=== PATIENT | male | born 1995 ===

== ENCOUNTER → 2016-07-17 | Outpatient (CLI) | payer BC ==
[2016-07-17 12:06] LABS: BLOOD UREA NITROGEN 18 mg/dL (7-22); BUN/CREATININE RATIO 16.36 (6-20); CALCIUM 9.8 mg/dL (8.7-10.7); EST GLOMERULAR FILTRATION > 60 (>60 ml/min/1.73m(2)); SERUM ALBUMIN 4.7 g/dL (3.5-4.8)
[2016-07-17 12:13] LABS: HEMATOCRIT 49.8 % (42.0-52.0); HEMOGLOBIN 17.7 g/dL (14.0-18.0); MEAN CORPUSCULAR HEMOGLOBIN 29.5 PG (27-31); MEAN CORPUSCULAR HGB CONC 35.5 g/dL (33-37); MEAN PLATELET VOLUME 10.3 FL (7.4-12.2)
[2016-07-17 13:12] LABS: VITAMIN D 25-HYDROXY 41.9 NG/ML (30-100)
== END ==
LOC: LAB 11:41
PROVIDERS: ATTEND Obstetrics & Gynecology Gynecology
DX: R53.83 Other fatigue (principal); M62.81 Muscle weakness (generalized)
CPT/HCPCS: 36415; 80053; 82306; 84443; 85027